=== PATIENT | male | born 1980 | race American Indian/Alaskan Native ===

== ENCOUNTER → 2018-07-14 | Outpatient (CLI) | payer OTHER, MEDICAID, SELFPAY | LOC: DI 11:51 | PROVIDERS: PCP Family Medicine; Visit Provider Family Medicine | DX: M77.10 Lateral epicondylitis, unspecified elbow (principal); Z53.9 Procedure and treatment not carried out, unspecified reason ==

== ENCOUNTER → 2018-07-15 08:02 | Outpatient (CLI) | payer MEDICAID, OTHER, SELFPAY ==
--- NOTE | 2018-07-15 | DI.RAD.S_ITS ---
PROCEDURE: XR ELBOW LT MIN 3V INDICATIONS: Lateral epicondylitis TECHNIQUE: 3 views of the elbow were acquired. COMPARISON: None. FINDINGS: Bones: No fractures or dislocations. No suspicious bony lesions. There is mild cortical irregularity, possibly early calcific density projecting in the region of the humeral attachment of the common extensor origin Soft tissues: No elbow joint effusion. No suspicious soft tissue calcifications. IMPRESSION: Mild cortical irregularity and adjacent soft tissue calcific densities in the region of the common extensor origin suspicious for tendinopathy (in the setting of lateral epicondylitis syndrome). This could be further confirmed with MRI as clinically warranted. Dictated by: Hakan Flor M.D. on 07/15/2018 at 9:36 Approved by: Hakan Flor M.D. on 07/15/2018 at 9:46
== END ==
PROVIDERS: Family Provider Family Medicine; PCP Family Medicine; Visit Provider Family Medicine
DX: M77.12 Lateral epicondylitis, left elbow (principal)
CPT/HCPCS: 73080

== ENCOUNTER → 2019-01-18 11:45 | Outpatient (CLI) | payer OTHER, MEDICAID, SELFPAY ==
--- NOTE | 2019-01-18 | DI.MRI.S_ITS ---
PROCEDURE: MR ELBOW LT W CON INDICATIONS: Lateral epicondylitis, left elbow TECHNIQUE: Noncontrast coronal proton density fast spin echo and T2 fast spin echo with fat saturation, axial and sagittal T1 spin echo and T2 fast spin echo with fat saturation through the elbow. COMPARISON: None. FINDINGS: Image quality: Excellent. Lateral structures: The lateral ulnar collateral ligament and radial collateral ligament both appear intact. The overlying common extensor tendon appears mildly thickened with increased T2 hyperintensity. Medial structures: The ulnar collateral ligament appears intact. The overlying common flexor tendon appears normal. The ulnar nerve appears normal in size and signal within the cubital tunnel. Anterior structures: The biceps and brachialis tendons both appear intact as they insert onto the proximal radius and ulna, respectively. No bicipitoradial bursal fluid. The median and radial neurovascular bundles appear normal; no focal muscle atrophy to suggest nerve impingement. Posterior structures: The conjoint triceps tendon from the long and lateral heads appears intact. The medial head of the triceps tendon also appears normal, with direct muscle insertion onto the olecranon. No olecranon bursal fluid. Bone and cartilage: No bone marrow contusions or fractures. There is focal marrow edema involving the distal humerus, for example image 14 series 5. On the sagittal pulse sequence, there is curvilinear low signal intensity seen on image 12 series 9. IMPRESSION: Distal humerus subchondral marrow signal changes and edema. This could represent acute posttraumatic marrow contusion, nondisplaced osteochondral fracture, versus early joint degeneration. Osteochondral defect, versus avascular necrosis is in the differential although unusual location and appearance. Mild common extensor tendinopathy, which can be seen in the setting of lateral epicondylitis syndrome. This finding technically age-indeterminate Dictated by: Hakan Flor M.D. on 01/18/2019 at 13:35 Approved by: Hakan Flor M.D. on 01/18/2019 at 13:52
== END ==
PROVIDERS: Family Provider Family Medicine; PCP Family Medicine; Visit Provider Orthopaedic Surgery
DX: M77.12 Lateral epicondylitis, left elbow (principal)
CPT/HCPCS: 73221